=== PATIENT | male | born 1970 | race Caucasian/White ===

== ENCOUNTER → 2017-09-09 | Outpatient (CLI) | payer SELFPAY ==
[~2017-09-09] MED LIST: ACET325; Bactrim Ds Tab1 EACH PO; HYDACE5 PO; IBUP200; IBUP600 PO; IBUP800 PO; NAPR500 PO; Naprosyn500 MG PO; Norco 5-325 Ta1 EACH PO
[2017-09-09 11:38] LABS: BASOPHILS ABSOLUTE AUTO 0.05 K/mm3 (0.00-0.23); BASOPHILS PERCENT AUTO 1 % (0-2); EOSINOPHILS ABSOLUTE AUTO 0.38 K/mm3 (0.00-0.68); EOSINOPHILS PERCENT AUTO 4 % (0-6); Hematocrit 51.5 % (37.0-53.0); Hemoglobin 16.6 g/dL (13.5-17.5); IMMATURE GRAN ABSOLUTE AUTO 0.05 K/mm3 (0.00-0.10); IMMATURE GRAN PERCENT AUTO 1 % (0-1); LYMPHOCYTES ABSOLUTE AUTO 2.51 K/mm3 (0.84-5.20); LYMPHOCYTES PERCENT AUTO 28 % (21-46); MONOCYTES ABSOLUTE AUTO 0.99 K/mm3 (0.16-1.47); MONOCYTES PERCENT AUTO 11 % (4-13); Mean Corpuscular HGB 27.7 pg (26.0-34.0); Mean Corpuscular HGB Conc 32.2 g/dL (31.5-36.5); Mean Corpuscular Volume 86 fL (80-100); Mean Platelet Volume 9.3 fL (9.1-12.4); NEUTROPHILS ABSOLUTE AUTO 5.08 K/mm3 (1.96-9.15); NEUTROPHILS PERCENT AUTO 56 % (41-73); Platelet Count 326 K/mm3 (150-400); RDW Standard Deviation 43.8 fL (35.1-46.3); White Blood Cell Count 9.06 K/mm3 (4.00-11.30)
[2017-09-09 12:23] LABS: Very Low Density Lipoprot Chol 52 mg/dL (6-32)
[2017-09-09 12:32] LABS: Alanine Aminotransfer (ALT/SGP 44 U/L (12-78); Albumin, Blood 4.1 g/dL (3.4-5.0); Albumin/Globulin Ratio 1.1 (0.8-1.8); Alk Phos 74 U/L (50-136); Anion Gap 11 mmol/L (6-16); Aspartate Aminotrans (AST/SGOT 24 U/L (12-37); Bilirubin, Total 0.5 mg/dL (0.1-1.0); Blood Urea Nitrogen 10 mg/dL (8-24); CHOL/HDL RATIO 5.1; CO2, Blood 23 mmol/L (21-32); Calcium, Blood 9.2 mg/dL (8.5-10.1); Chloride, Blood 107 mmol/L (98-108); Cholesterol 224 mg/dL (50-200); Creatinine, Blood 0.91 mg/dL (0.60-1.20); Globulin, Blood 3.9 g/dL (2.2-4.0); Glomerular Filtration Rate >60 (60-); Glucose, Blood 102 mg/dL (70-99); HDL Cholesterol 44 mg/dL (>39); LDL/HDL RATIO 2.9; Low Density Lipoprotein Chol 128 mg/dL (0-110); Potassium, Blood 4.1 mmol/L (3.5-5.5); Prostate Specific Antigen 0.645 ng/mL (0.000-4.000); Sodium, Blood 141 mmol/L (136-145); Triglycerides 262 mg/dL (30-160)
== END | disposition home or self-care (01) ==
LOC: LAB 11:18 → LAB SHORT 11:18
PROVIDERS: Nurse Practitioner Family
DX: Z13.220 Encounter for screening for lipoid disorders (principal); Z12.5 Encounter for screening for malignant neoplasm of prostate; Z13.1 Encounter for screening for diabetes mellitus; Z13.0 Encounter for screening for diseases of the blood and blood-forming organs and certain disorders involving the immune mechanism
CPT/HCPCS: 80053; 80061; 84443; 85025; G0103

== ENCOUNTER 2020-07-02 07:47 | Day surgery (SDC) | payer OTHER ==
[~2020-07-02] VITALS: Ht 182.9 cm; Wt 111.4 kg
== END 2020-07-02 10:15 | disposition home or self-care (01) ==
LOC: ORSCSDS 07:47
DX: M72.0 Palmar fascial fibromatosis [Dupuytren] (principal); F17.210 Nicotine dependence, cigarettes, uncomplicated; E66.9 Obesity, unspecified; Z68.34 Body mass index [BMI] 34.0-34.9, adult
CPT/HCPCS: 88304; J0690; J1100; J1885; J2250; J2405; J2704; J3010; J7120

== ENCOUNTER 2024-10-10 07:26 | Day surgery (SDC) | payer OTHER ==
[~2024-10-10] VITALS: Ht 182.9 cm; Wt 132.0 kg
[2024-10-10] MEDS ORDERED: OMEP20ER PO (08:13)
[2024-10-10] MEDS ORDERED: CeFAZolin Sodium 3,000 MG VIAL ONE (08:15)
[2024-10-10] MEDS ORDERED: NS 100 ML IV ONE (08:17)
[2024-10-10] MEDS ORDERED: FentaNYL Citrate 50 MCG/ML 2 ML Injection ONE ×2 (08:46→09:17)
[2024-10-10] MEDS ORDERED: Midazolam HCl 1MG / ML 2ML Vial ONE (08:46)
[2024-10-10] MEDS ORDERED: Ondansetron HCl 2 MG / ML 2ML Vial ONE (09:00)
[2024-10-10] MEDS ORDERED: Dexamethasone Sod Phos 10 MG/ML 1ML VIAL ONE (09:00)
[2024-10-10] MEDS ORDERED: CeFAZolin Sodium 1000 mg Vial ONE (09:07)
[2024-10-10] MEDS ORDERED: Lidocaine HCl 2% 10 ML SDA INJ ONE (09:12)
[2024-10-10] MEDS ORDERED: Lidocaine HCl 2% 10 ML SDA ONE (09:22)
--- NOTE | 2024-10-10 09:52 | NUR ---
10/10/24 0952 Marilu Boyd REPORT RECEIVED FROM GÉNESIS AND RN. PT ASLEEP WITH LMA IN UPON ARRIVAL TO PACU. DRESSING CDI. VSS. OCCASIONAL JAW THRUST NEEDED UNTIL 944. PT CURRENTLY AROUSABLE TO VERBAL STIMULI, ANSWERS QUESTIONS AND FOLLOWS COMMANDS.
[2024-10-10 10:08] VITALS: BP 143/93
--- NOTE | 2024-10-10 10:08 | NUR ---
10/10/[address] AT BEDSIDE
[2024-10-10] MEDS ORDERED: HYDROcodone 5-APAP 325 TAB ONE (10:25)
== END 2024-10-10 10:52 | disposition home or self-care (01) ==
LOC: ORSCSDS 07:26
PROVIDERS: Orthopaedic Surgery
PROC: 0JNK0ZZ Release Left Hand Subcutaneous Tissue and Fascia, Open Approach (ICD-10-PCS; principal; 2024-10-10 09:00)
PROC: 01N54ZZ Release Median Nerve, Percutaneous Endoscopic Approach (ICD-10-PCS; principal; 2024-10-10 09:00)
DX: G56.02 Carpal tunnel syndrome, left upper limb (principal); M72.0 Palmar fascial fibromatosis [Dupuytren]; I10 Essential (primary) hypertension; K21.9 Gastro-esophageal reflux disease without esophagitis; G47.33 Obstructive sleep apnea (adult) (pediatric); F17.210 Nicotine dependence, cigarettes, uncomplicated; E66.9 Obesity, unspecified; Z68.39 Body mass index [BMI] 39.0-39.9, adult; Z79.899 Other long term (current) drug therapy
CPT/HCPCS: A9270; J0690; J1100; J2003; J2250; J2405; J2704; J3010; J7120